=== PATIENT | female | born 1940 | race Caucasian/White ===

== ENCOUNTER → 2017-06-14 | Outpatient (CLI) | payer MEDICARE, OTHER | END | disposition home or self-care (01) | LOC: US 13:32 | DX: I70.90 Unspecified atherosclerosis (principal); I77.1 Stricture of artery | CPT/HCPCS: 93922; 93925 ==

== ENCOUNTER → 2017-08-02 | Outpatient (CLI) | payer MEDICARE, OTHER ==
[2017-08-02] MEDS: REGADENOSON 0.4 MG/5 ML DISP.SYRIN. IV (10:08)
== END | disposition home or self-care (01) ==
LOC: NM 07:32
DX: I25.810 Atherosclerosis of coronary artery bypass graft(s) without angina pectoris (principal); I45.10 Unspecified right bundle-branch block; I34.0 Nonrheumatic mitral (valve) insufficiency
CPT/HCPCS: 78452; 93017; 93306; 96374; 96375; 96376; A9500; J2785

== ENCOUNTER 2017-08-05 08:50 | Inpatient (IN) | payer MEDICARE, OTHER ==
[2017-08-05 09:22] LABS: HEMOGLOBIN 13.1 g/dL (12.0-15.5); MEAN CORPUSCULAR HEMOGLOBIN 28 pg (25-35); MEAN CORPUSCULAR HGB CONC 34 g/dL (31-37); MEAN CORPUSCULAR VOLUME 85 fL (79-100); PLATELET COUNT 217 x10^3/uL (140-400); RED BLOOD COUNT 4.62 x10^6/uL (3.50-5.40); RED CELL DISTRIBUTION WIDTH 14.2 % (11.5-14.5); WHITE BLOOD COUNT 7.8 x10^3/uL (4.0-11.0)
[2017-08-05] MEDS ORDERED: LIDOCAINE 2% 20 ML VIAL. (09:29)
[2017-08-05] MEDS ORDERED: IODIXANOL 320 MG/ML 100 ML VIAL. ×2 (09:29→11:25)
[2017-08-05 09:32] LABS: PROTHROMBIN TIME PATIENT 12.4 SEC (11.7-14.0)
[2017-08-05 09:34] LABS: ANION GAP 11 (6-14); BLOOD UREA NITROGEN 17 mg/dL (7-20); CALCIUM 9.5 mg/dL (8.5-10.1); CARBON DIOXIDE 29 mmol/L (21-32); CHLORIDE 100 mmol/L (98-107); GFR 53.8; GLUCOSE 223 mg/dL (70-99); POTASSIUM 3.6 mmol/L (3.5-5.1); SODIUM 140 mmol/L (136-145)
[2017-08-05] MEDS ORDERED: fentaNYL PF VIAL 100 MCG/2 ML VIAL ×2 (10:52→11:55)
[2017-08-05] MEDS ORDERED: MIDAZOLAM HCL/PF 2 MG/2 ML VIAL. ×2 (10:53→11:55)
[2017-08-05] MEDS ORDERED: hydrALAZINE 20 MG/ML VIAL. (11:04)
[2017-08-05] MEDS ORDERED: HEPARIN for IV BOLUS 10,000 UNIT/10 ML VIAL. ×2 (11:20→11:35)
[2017-08-05] MEDS ORDERED: ONDANSETRON PF 4 MG/2 ML VIAL. (11:29)
[2017-08-05] MEDS ORDERED: dilTIAZem IV PUSH 25 MG/5 ML VIAL (11:35)
[2017-08-05] MEDS: ONDANSETRON PF 4 MG/2 ML VIAL. IV ×2 (13:53→19:24)
[2017-08-05] MEDS: IODIXANOL 320 MG/ML 100 ML VIAL. IART (13:53)
[2017-08-05] MEDS: LIDOCAINE 2% 20 ML VIAL. IJ (13:54)
[2017-08-05] MEDS: fentaNYL PF VIAL 100 MCG/2 ML VIAL IV ×2 (13:54→14:15)
[2017-08-05] MEDS: MIDAZOLAM HCL/PF 2 MG/2 ML VIAL. IV (13:55)
[2017-08-05] MEDS: HEPARIN for IV BOLUS 10,000 UNIT/10 ML VIAL. IV (13:57)
[2017-08-05] MEDS: hydrALAZINE 20 MG/ML VIAL. IVP ×2 (13:59→21:47)
[2017-08-05] MEDS: NITROGLYCERIN 200 MCG/2 ML SYRINGE FOR CATH/VASC LAB. IART (13:59)
[2017-08-05] MEDS: IV 1/2 NORMAL SALINE 1,000 ML IV (14:04)
[2017-08-05] MEDS ORDERED: NITROGLYCERIN SUBLINGUAL 0.4 MG BOTTLE OF 25. SL (14:15)
[2017-08-05] MEDS ORDERED: ACETAMINOPHEN 325 MG TABLET. PO (14:15)
[2017-08-05] MEDS ORDERED: oxyCODONE/APAP 5/325 1 TAB TABLET PO (15:30)
[2017-08-05 17:05] LABS: POC GLUCOSE 176 mg/dL (70-99)
[2017-08-05 20:52] LABS: POC GLUCOSE 179 mg/dL (70-99)
[2017-08-05] MEDS: FAMOTIDINE 20 MG TABLET. PO (21:04)
[2017-08-06] MEDS: IV 1/2 NORMAL SALINE 1,000 ML IV (00:23)
[2017-08-06 08:02] LABS: POC GLUCOSE 232 mg/dL (70-99)
[2017-08-06] MEDS: LOSARTAN POTASSIUM 50 MG TABLET. PO (09:00)
[2017-08-06] MEDS ORDERED: ATORVASTATIN CALCIUM 20 MG TABLET PO (09:00)
[2017-08-06] MEDS ORDERED: ASPIRIN CHEWABLE 81 MG TABLET. PO (09:00)
[2017-08-06] MEDS: FLUoxetine HCL 20 MG CAPSULE PO (09:09)
[2017-08-06] MEDS: FAMOTIDINE 20 MG TABLET. PO (09:09)
[2017-08-06 11:33] LABS: POC GLUCOSE 271 mg/dL (70-99)
== END 2017-08-06 12:30 | disposition home or self-care (01) | DRG 271 ==
LOC: CCL 08:50 → 2 NORTH 12:00
PROC: B41D1ZZ Fluoroscopy of Aorta and Bilateral Lower Extremity Arteries using Low Osmolar Contrast (ICD-10-PCS; principal; 2017-08-05)
PROC: 04CQ3ZZ Extirpation of Matter from Left Anterior Tibial Artery, Percutaneous Approach (ICD-10-PCS; 2017-08-05)
PROC: 047U3ZZ Dilation of Left Peroneal Artery, Percutaneous Approach (ICD-10-PCS; 2017-08-05)
DX: I99.8 Other disorder of circulatory system (principal); E11.52 Type 2 diabetes mellitus with diabetic peripheral angiopathy with gangrene; E78.5 Hyperlipidemia, unspecified; I10 Essential (primary) hypertension; Z91.040 Latex allergy status; Z88.2 Allergy status to sulfonamides; Z88.8 Allergy status to other drugs, medicaments and biological substances; Z91.048 Other nonmedicinal substance allergy status
CPT/HCPCS: 36415; 37229; 37232; 75630; 80048; 82962; 85027; 85610; 99152; 99153; C1724; C1725; C1769; C1771; C1885; C1892; G0269; J0360; J1644; J2250; J2405; J3010; J3490; J7030

== ENCOUNTER → 2017-12-23 | Outpatient (CLI) | payer MEDICARE, OTHER ==
[2017-10-22 11:00] VITALS: BP 152/54
[~2017-12-23] MED LIST: ALEN70TA5 PO; ASPI-630 PO; ATOR20TA58 PO; CLOP75TA PO; FAMO-63 PO; FISH1CAP PO; FLUO20CA8 PO; HYDR12.58 PO; INSU100I13 SQ; INSU100I17 SQ; INSU100I32 SQ; LOSA100T6 PO; MULT1TAB52 PO
--- NOTE | 2017-12-26 14:45 | RAD ---
MR#: [id number] Date of Study: 12/23/2017 Ordering Physician: HARPER KIRKPATRICK, Referring Physician: HARPER KIRKPATRICK, Tech: YASMEEN Devi, RDMS, RTR APPROVED REPORT Patient Location : OUT-PATIENT Indications Lower Extremity Edema : Findings Grayscale images the bilateral saphenofemoral junctions do not reveal any obvious evidence of thrombu s. The left proximal to mid great saphenous vein has been previously removed for bypass. Spectral waveforms and color Doppler do not reveal any evidence of reflux in the bilateral greater an d lesser saphenous veins. Critical Notification Critical Value: No <Conclusion> Negative for reflux in the bilateral greater and lesser saphenous veins Signed by : Azael Hanks, Electronically Approved : 12/26/2017 14:44:04
== END | disposition home or self-care (01) ==
LOC: US 12:33
PROVIDERS: ATTEND Internal Medicine Cardiovascular Disease
DX: R60.0 Localized edema (principal); I10 Essential (primary) hypertension; E11.9 Type 2 diabetes mellitus without complications; I25.10 Atherosclerotic heart disease of native coronary artery without angina pectoris; Z88.2 Allergy status to sulfonamides; Z88.8 Allergy status to other drugs, medicaments and biological substances
CPT/HCPCS: 93970

== ENCOUNTER → 2018-05-24 | Outpatient (CLI) | payer MEDICARE, OTHER ==
[2017-10-22 11:00] VITALS: BP 152/54
[~2018-05-24] MED LIST changes: +LOSA100T14 PO; -LOSA100T6 PO
== END | disposition home or self-care (01) ==
LOC: PMGWOUND 10:16
PROVIDERS: ATTEND Preventive Medicine Undersea and Hyperbaric Medicine
DX: E11.621 Type 2 diabetes mellitus with foot ulcer (principal); L97.411 Non-pressure chronic ulcer of right heel and midfoot limited to breakdown of skin; E11.51 Type 2 diabetes mellitus with diabetic peripheral angiopathy without gangrene; I10 Essential (primary) hypertension; I87.2 Venous insufficiency (chronic) (peripheral); I89.0 Lymphedema, not elsewhere classified; E78.5 Hyperlipidemia, unspecified; F32.9 Major depressive disorder, single episode, unspecified; K21.9 Gastro-esophageal reflux disease without esophagitis; M19.90 Unspecified osteoarthritis, unspecified site; I25.10 Atherosclerotic heart disease of native coronary artery without angina pectoris; E66.9 Obesity, unspecified; Z68.32 Body mass index [BMI] 32.0-32.9, adult
CPT/HCPCS: 82962; 97597